=== PATIENT | male | born 1975 | race Caucasian/White ===

== ENCOUNTER 2022-04-17 19:40 | Inpatient (IN) | payer MEDICARE, OTHER ==
[~2022-04-17] VITALS: Ht 172.7 cm; Wt 85.5 kg
[2022-04-17] MEDS ORDERED: SWABABLE VALVE TRANSFER SET EA MC ONE (20:41)
[2022-04-17] MEDS ORDERED: IOHEXOL 350 100 ML INFUS..BTL ONE (20:41)
[2022-04-17] MEDS ORDERED: IV NORMAL SALINE 250 ML IV ONE (20:42)
[2022-04-17 20:56] LABS: HEMATOCRIT 31.8 % (36.7-47.1); MEAN CORPUSCULAR HEMOGLOBIN 27.6 uug (23.8-33.4); MEAN CORPUSCULAR VOLUME 85.4 fL (73.0-96.2); PLATELET COUNT (AUTO) 172 K/uL (152-348)
[2022-04-17 21:14] LABS: CARBON DIOXIDE 27 mmol/L (21-32); CHLORIDE 97 mmol/L (98-107); GLUCOSE 95 mg/dL (74-106); POTASSIUM 3.5 mmol/L (3.5-5.1); UREA NITROGEN, BLOOD 41 mg/dL (7-18)
--- NOTE | 2022-04-17 21:17 | NUR ---
Lab called, spoke to technical laboratory asst [facility]. Critical value creatinine 6.9
[2022-04-17 21:18] LABS: ETHANOL < 3 MG/DL (0-0)
[2022-04-17 21:22] LABS: ALANINE AMINOTRANSFERASE 22 U/L (16-63); ALKALINE PHOSPHATASE 86 U/L (50-136); ASPARTATE AMINOTRANSFERASE 29 U/L (15-37); BILIRUBIN,DIRECT 0.1 mg/dL (0.0-0.2); BILIRUBIN,TOTAL 0.6 mg/dL (0.2-1.0); TOTAL PROTEIN, SERUM 7.4 g/dL (6.4-8.2)
--- NOTE | 2022-04-17 21:25 | NUR ---
Lab called, spoke to [facility] stated soraya was 113.
--- NOTE | 2022-04-17 21:44 | NUR ---
Dr Aldana speaking with DR Hermosillo for cardiology consult.
[2022-04-17] MEDS ORDERED: ENOXAPARIN SODIUM 80 MG/0.8 ML DISP.SYRIN SQ ONE (21:45)
[2022-04-17] MEDS ORDERED: FAMOTIDINE. 20 MG/2 ML VIAL IV ONE (21:45)
[2022-04-17] MEDS ORDERED: METOCLOPRAMIDE HCL 10 MG/2 ML VIAL IV ONE (21:45)
[2022-04-17] MEDS ORDERED: ASPIRIN 81 MG TAB.CHEW PO ONE (21:45)
[2022-04-17] MEDS ORDERED: diphenhydrAMINE 50 MG/1 ML VIAL IV ONE (21:45)
[2022-04-17 21:57] LABS: THYROID STIMULATING HORMONE 2.661 mIU/mL (0.358-3.740)
[2022-04-18] MEDS ORDERED: NIFE-35 PO (00:24)
[2022-04-18] MEDS ORDERED: AMLO-212 PO (00:24)
[2022-04-18] MEDS ORDERED: CALC667T6 PO (00:24)
[2022-04-18] MEDS ORDERED: SIMV-49 PO (00:24)
[2022-04-18] MEDS ORDERED: GABA-532 PO (00:24)
[2022-04-18] MEDS ORDERED: HYDR-4077 PO (00:24)
--- NOTE | 2022-04-18 04:10 | NUR ---
Called third floor spoke to Gem Charge nurse. Got room number placement. Stated patient will be placed in room #320.
[2022-04-18] MEDS ORDERED: PROCHLORPERAZINE EDISYLATE 10 MG/2 ML VIAL ONE (04:45)
[2022-04-18] MEDS ORDERED: PROCHLORPERAZINE EDISYLATE 10 MG/2 ML VIAL IV ONE (04:45)
--- NOTE | 2022-04-18 04:57 | NUR ---
Called [facility] for a panel call.
[2022-04-18] MEDS ORDERED: REMEDY ESSENTIAL ZINC PASTE 113 GM TP PRN (05:45)
[2022-04-18] MEDS ORDERED: MAGNESIUM HYDROXIDE 30 ML LIQUID UDC PO PRN (05:45)
[2022-04-18] MEDS ORDERED: ONDANSETRON 4 MG/2 ML VIAL IV PRN (05:45)
[2022-04-18] MEDS ORDERED: TEMAZEPAM 15 MG CAPSULE PO PRN (05:45)
[2022-04-18] MEDS ORDERED: ACETAMINOPHEN 325 MG TABLET PO PRN (05:45)
--- NOTE | 2022-04-18 05:46 | NUR ---
Called 3rd floor to give report to Gem GIRON. Said she will call back.
--- NOTE | 2022-04-18 06:37 | NUR ---
Called thrid floor and endorsed patient to MACK Rabago.
--- NOTE | 2022-04-18 07:24 | NUR ---
PT WAS TRANSFERED TO TELEMETRY ROOM #320. NO S/S OF ACUTE DISTRESS AT THE TIME OF TRANSFER.
[2022-04-18 07:48] LABS: *BILIRUBIN,URIN NEGATIVE (NEGATIVE); *BLOOD, URINE 2+ (NEGATIVE); *CLARITY,URINE CLEAR (CLEAR); *COLOR,URINE YELLOW (YELLOW); *UROBILINOGEN,URINE 0.2 E.U./dl (NORMAL); LEUKOCYTE ESTERASE ,URINE NEGATIVE (NEGATIVE); NITRITE, URINE NEGATIVE (NEGATIVE); PH,URINE 8.5 (5.0-8.0); UGLUCOSE 1+ (NEGATIVE)
[2022-04-18 07:53] LABS: *KETONES,URINE NEGATIVE (NEGATIVE)
[2022-04-18 07:54] LABS: *AMPHETAMINE, URINE NEGATIVE (NEGATIVE); *CANNABINOID, URINE NEGATIVE (NEGATIVE); *COCCAINE, URINE NEGATIVE (NEGATIVE); *OPIATE, URINE NEGATIVE (NEGATIVE); *PHENCYCLIDINE SCREEN,URINE NEGATIVE (NEGATIVE); WBC,URINE 0-3 /HPF (0-3)
[2022-04-18 07:55] LABS: BACTERIA,URINE FEW /HPF (NONE SEEN); SQUAMOUS EPITHELIAL CELL,UR NONE SEEN /HPF (NONE SEEN)
[2022-04-18] MEDS: ASPIRIN 81 MG TAB.CHEW PO SCH (10:59)
[2022-04-18] MEDS: hydrALAZINE HCL 50 MG TABLET PO SCH ×3 (10:59→17:09)
[2022-04-18] MEDS: AMLODIPINE 5 MG TABLET PO SCH ×2 (11:00→17:09)
[2022-04-18] MEDS: GABAPENTIN 100 MG CAPSULE PO SCH (11:00)
[2022-04-18 11:45] VITALS: BP 159/76
[2022-04-18] MEDS: CALCIUM ACETATE 667 MG CAP/TAB PO SCH ×2 (12:14→17:02)
[2022-04-18 15:55] VITALS: BP 159/63
[2022-04-18 20:00] VITALS: BP 153/65
[2022-04-18] MEDS ORDERED: ATORVASTATIN 20 MG TABLET PO SCH (21:00)
[2022-04-18] MEDS ORDERED: SIMVASTATIN 40 MG TABLET PO SCH (21:00)
[2022-04-19] VITALS: BP 167/64
[2022-04-19 04:00] VITALS: BP 173/68
[2022-04-19 06:39] LABS: HEMATOCRIT 28.9 % (36.7-47.1); MEAN CORPUSCULAR HEMOGLOBIN 28.3 uug (23.8-33.4); MEAN CORPUSCULAR VOLUME 86.8 fL (73.0-96.2); PLATELET COUNT (AUTO) 136 K/uL (152-348)
[2022-04-19 07:41] LABS: MAGNESIUM 2.7 mg/dL (1.8-2.4); POTASSIUM 4.8 mmol/L (3.5-5.1)
[2022-04-19 08:00] LABS: CREATININE 11.8 mg/dL (0.6-1.3); PHOSPHOROUS 9.6 mg/dL (2.5-4.9)
[2022-04-19] MEDS: CALCIUM ACETATE 667 MG CAP/TAB PO SCH ×2 (08:24→12:24)
[2022-04-19] MEDS: GABAPENTIN 100 MG CAPSULE PO SCH (08:25)
[2022-04-19] MEDS: ASPIRIN 81 MG TAB.CHEW PO SCH (08:25)
[2022-04-19] MEDS: hydrALAZINE HCL 50 MG TABLET PO SCH ×3 (08:28→13:23)
[2022-04-19] MEDS: AMLODIPINE 5 MG TABLET PO SCH (08:28)
[2022-04-19] MEDS ORDERED: METOPROLOL TARTRATE 50 MG TABLET PO SCH (09:00)
[2022-04-19] MEDS ORDERED: FOLIC ACID/VITAMIN B COMP W-C TABLET PO SCH (09:30)
--- NOTE | 2022-04-19 11:37 | NUR ---
WOUND CARE CONSULT: PT PRESENTS WITH LARGE AREA OF SCARRING WITH DRY ESCHAR TO RT FOOT, PRESENT ON ADMISSION. DPM CONSULT CALLED TO DR SCHACHTER. PANDEY IN AGREEMENT WITH PLAN OF CARE.
[2022-04-19] MEDS ORDERED: SEVELAMER CARBONATE 800 MG TABLET PO SCH (12:00)
[2022-04-19 12:50] VITALS: BP 163/71
--- NOTE | 2022-04-19 14:28 | NUR ---
Patient is getting his hemodialysis at the moment. Patient is stable, no signs of pain or distress verbalized by the patient or noticed by me.
[2022-04-19 16:10] VITALS: BP 176/88
--- NOTE | 2022-04-19 16:20 | NUR ---
Patient is finishing up with his HD and is getting DC home after it. Condition is stable , no complains of pain or discomfort from the patient.
[2022-04-19] MEDS ORDERED: METO50TA16 PO (17:13)
[2022-04-19] MEDS ORDERED: SIMV-46 PO (17:13)
[2022-04-19] MEDS ORDERED: ASPI81TA31 PO (17:13)
[2022-04-19] MEDS ORDERED: FOLI0.8T2 PO (17:14)
[2022-04-19] MEDS ORDERED: SEVE800T7 PO (17:14)
[2022-04-20 08:06] LABS: HEPATITIS B SURFACE AG Negative (Negative)
[2022-04-20] MEDS ORDERED: THERAHONEY GEL 1.5 OZ TUBE TOP SCH (09:00)
== END 2022-04-19 18:30 | disposition home or self-care (01) | DRG 264 ==
LOC: ER 19:40 → TELE3 04-18 07:26
PROVIDERS: ADMIT Internal Medicine; ATTEND Internal Medicine
PROC: 0JBQ0ZZ Excision of Right Foot Subcutaneous Tissue and Fascia, Open Approach (ICD-10-PCS; principal; 2022-04-19)
PROC: 5A1D70Z Performance of Urinary Filtration, Intermittent, Less than 6 Hours Per Day (ICD-10-PCS; 2022-04-19)
DX: I16.0 Hypertensive urgency (principal); I21.4 Non-ST elevation (NSTEMI) myocardial infarction; N18.6 End stage renal disease; L97.518 Non-pressure chronic ulcer of other part of right foot with other specified severity; E11.621 Type 2 diabetes mellitus with foot ulcer; I12.0 Hypertensive chronic kidney disease with stage 5 chronic kidney disease or end stage renal disease; E11.22 Type 2 diabetes mellitus with diabetic chronic kidney disease; Z99.2 Dependence on renal dialysis; D63.8 Anemia in other chronic diseases classified elsewhere; E78.5 Hyperlipidemia, unspecified; E11.42 Type 2 diabetes mellitus with diabetic polyneuropathy; G89.29 Other chronic pain; Z20.822 Contact with and (suspected) exposure to COVID-19; E11.51 Type 2 diabetes mellitus with diabetic peripheral angiopathy without gangrene; Z89.421 Acquired absence of other right toe(s)
CPT/HCPCS: 36415; 70450; 70496; 71045; 83605; 83735; 84100; 84443; 84484; 85025; 85730; 86706; 87040; 87340; 93005; 93307; A4663; G0378; G0480; J0780; J1200; J2765; Q9967